=== PATIENT | male | born 1965 | race Caucasian/White ===

== ENCOUNTER 2025-02-19 11:44 | Outpatient (AMB) | payer MEDICARE, SELFPAY ==
--- OUTSIDE RECORDS SUMMARY | 2025-02-15 23:59 | XMS_ITS | Continuity of Care Document ---
Author Organization [facility] Primary [facility] e Richards Address [address] [place] [address]- Care Team Providers Care Crossing Supervisor Name Role Phone Tayo Cochran MD Primary Care Physician Encounter [facility] Date(s): 01/16/25 - 02/15/25 [facility] [place] [address] [place], [place] [address] Encounter Type: Triage Allergies, Adverse Reactions, Alerts Substance Criticality Severity Reaction Reaction Severity Status Pamelor Active Immunizations Given and Recorded Vaccine Date Status Refusal Reason zoster vaccine, inactivated 12/22/24 Recorded zoster vaccine, inactivated 07/11/24 Recorded SARS-CoV-2 (COVID-19) mRNA BNT-162b2 vac 11/01/20 Recorded SARS-CoV-2 (COVID-19) mRNA BNT-162b2 vac 10/11/20 Recorded Medications amLODIPine 5 mg oral tablet 1 tablet = 5 mg, By Mouth, Daily, # 90 tablet, 1 Refills, Maintenance, 11/24/24 9:09:00 AM EDT, Tablet, [facility]/pharmacy #[id number], Partial fill upon patient request if the prescription is for a schedule II opioid drug., 108.8, kg, 05/15/24 11:03:00 EST, Dry Weight Start Date: 11/24/24 Stop Date: 05/23/25 Status: Ordered Medication Dispense Status: Completed Quantity: 90.0 Unit: tablet Total Allowed Fills: 2 Fills Dispensed: 0 Doc-Q-Lace = 100 mg, By Mouth, 2 times a day, PRN, 0 Refills, Maintenance, 06/23/23 3:42:00 PM EST, Partial fill upon patient request if the prescription is for a schedule II opioid drug. Start Date: 06/23/23 Status: Ordered Medication Dispense Status: Completed Total Allowed Fills: 1 Fills Dispensed: 0 gabapentin 600 mg oral tablet 1 tablet, By Mouth, 4 times a day, MassPat checked, # 120 tablet, 3 Refills, Maintenance, 11/27/24 6:19:00 PM EDT, [facility] #[id number], 180, cm, 11/16/24 8:29:00 EDT, Height, 104.5, kg, 10/21/24 9:40:00 EDT, Dry Weight Start Date: 11/27/24 Status: Ordered Medication Dispense Status: Completed Quantity: 120.0 Unit: tablet Total Allowed Fills: 4 Fills Dispensed: 0 latanoprost 0.005% ophthalmic solution 1 drops, Eyes, Both, Daily at bedtime, # 3 mL, 0 Refills, Maintenance, 07/13/23 9:06:00 AM EST, Ophth Solution, Partial fill upon patient request if the prescription is for a schedule II opioid drug. Start Date: 07/13/23 Status: Ordered Medication Dispense Status: Completed Quantity: 3.0 Unit: mL Total Allowed Fills: 1 Fills Dispensed: 0 MiraLax oral powder for reconstitution = 17 Gm, By Mouth, Daily, with 8oz of water, 0 Refills, Maintenance, 06/23/23 3:46:00 PM EST, Partial fill upon patient request if the prescription is for a schedule II opioid drug. Start Date: 06/23/23 Status: Ordered Medication Dispense Status: Completed Total Allowed Fills: 1 Fills Dispensed: 0 morphine 100 mg/8 to 12 hr oral tablet, extended release 1 tablet = 100 mg, By Mouth, Every 8 hours, MassPat checked, # 84 tablet, 0 Refills, Maintenance, 02/15/25 2:56:00 PM EDT, ER Tablet, [facility] #[id number], Partial fill upon patient request if the prescription is for a schedule II opioid drug. Please fill on or after 06/03/24, 180, cm, 01/30/25 8:54:00 EDT, Height, 104.5, kg, 10/21/24 9:40:00 EDT, Dry Weight Start Date: 02/15/25 Stop Date: 03/15/25 Status: Ordered Medication Dispense Status: Completed Quantity: 84.0 Unit: tablet Total Allowed Fills: 1 Fills Dispensed: 0 Narcan 4 mg/0.1 mL nasal spray 1 sprays = 4 mg, Nares, Both, Once, use one spray in one nostril. if an additional dose is needed, alternate nostril may repeat every 2 to 3 minutes until patient responds, # 2 each, 1 Refills, Soft Stop, 12/21/24 3:18:00 PM EDT, [facility] #[id number], Partial fill upon patient request if the p rescription is for a schedule II opioid drug., 180, cm, 12/21/24 14:52:00 EDT, Height, 104.5, kg, 10/21/24 9:40:00 EDT, Dry Weight Start Date: 12/21/24 Status: Ordered Medication Dispense Status: Completed Quantity: 2.0 Unit: each Total Allowed Fills: 2 Fills Dispensed: 0 Prevacid 15 mg oral enteric coated capsule 2 capsule = 30 mg, By Mouth, 2 times a day, # 360 capsule, 1 Refills, Maintenance, 01/30/25 8:48:00 AM EDT, [facility] #[id number], Partial fill upon patient request if the prescription is for a schedule II opioid drug., 180, cm, 12/21/24 14:52:00 EDT, Height, 104.5, kg, 10/21/24 9:40:00 EDT, Dry Weight Start Date: 01/30/25 Stop Date: 07/29/25 Status: Ordered Medication Dispense Status: Completed Quantity: 360.0 Unit: capsule Total Allowed Fills: 2 Fills Dispensed: 0 Problem List Condition Confirmation Course Effective Dates Status H ealth Status Informant Abnormal gait Confirmed Active Acute pharyngitis Confirmed Active Adenomatous polyp of colon Confirmed Active Allergic rhinitis Confirmed Active Chest pain Confirmed Active Chronic pain syndrome Confirmed Active Constipation Confirmed Active Chronic, continuous use of opioids Confirmed Active Dyslipidemia Confirmed Active Essential hypertension Confirmed Active Eye strain Confirmed Active Gastric ulcer Confirmed Active Gastro-esophageal reflux disease with esophagitis Confirmed Active Gastroduodenitis Confirmed Active GERD (gastroesophageal reflux disease) Confirmed Active IFG (impaired fasting glucose) Confirmed Active Low back pain Confirmed Active Low tension glaucoma Confirmed Active Obese class I Confirmed Active Pain in elbow Confirmed Active Panic attack Confirmed Active Post-laminectomy syndrome Confirmed Active Recurrent major depression in partial remission Confirmed Active Shoulder pain Confirmed Active Social History Social History Type Response Smoking Status Former smoker, quit more than 30 days ago; Other: Quit ; entered on: 07/13/23 Sexual Orientation Self described orien tation: ; Straight or heterosexual Gender Identity Gender identity: Sex Sex Representation Male (finding) Patient Care team information Care Team Personnel Name: Tayo Cochran MD Position: [facility] Physician - Primary Care Member Role: PCP Address: [address] [place] [id number] Telecom: Care Team Related Persons Name: GAVINO CHANDLER Name: ALICE IRAHETA Insurance Providers Guarantor name: CADENCE Health Plan Information #: 1 Payer: [facility] PPO Payer Identifier: NA Member Number: [id number] Group Number: [id number] Subscriber Identifier: NA Relationship to Subscriber: self Coverage Type: Medicare PPO Coverage Verification Date: NA Telecom: NA Address:
--- OUTSIDE RECORDS SUMMARY | 2025-02-16 23:59 | XMS_ITS | Continuity of Care Document ---
Author Organization [facility] Primary [facility] e [facility] Address [address] [place] [address]- Care Team Providers Care Used Car Renovator Name Role Phone Tayo Cochran MD Primary Care Physician Encounter [facility] Date(s): 01/17/25 - 02/16/25 [facility] [address] [place], [place] [address] Encounter Type: Triage Allergies, Adverse Reactions, [...] Refills, Maintenance, 11/24/24 9:09:00 AM EDT, Tablet, [facility]/pharmacy #[id number], Partial fill upon patient request if [...] 3 Refills, Maintenance, 11/27/24 6:19:00 PM EDT, [facility] #[id number], 180, cm, 11/16/24 8:29:00 EDT, Height, 104.5, [...] Maintenance, 02/15/25 2:56:00 PM EDT, ER Tablet, [facility] #[id number], Partial fill upon patient request if the [...] Refills, Soft Stop, 12/21/24 3:18:00 PM EDT, [facility] #[id number], Partial fill upon patient request if the [...] 1 Refills, Maintenance, 01/30/25 8:48:00 AM EDT, [facility] #[id number], Partial fill upon patient request if the [...] Team Personnel Name: Tayo Cochran MD Position: [facility] Physician - Primary Care Member Role: PCP Address: [address] [place] [id number] Telecom: Care Team Related Persons Name: GAVINO CHANDLER Name: ALICE IRAHETA Insurance Providers Guarantor name: CADENCE Health Plan Information #: 1 Payer: [facility] PPO Payer Identifier: NA Member Number: [id number] Group Number: [id number] Subscriber Identifier: NA Relationship to Subscriber: self Coverage Type: Medicare PPO Coverage Verification Date: NA Telecom: NA Address:
--- NOTE | 2025-02-19 11:48 | MHC.OFFVIS ---
Vital Signs 02/19/25 11:50 Height 5 ft 11 in Weight 264 lb BMI 36.8 BP 163/96 H Blood Pressure Location Lt brachial Position Sitting Respiration 16 Pulse 103 H Pulse Source Pulse Oximeter Pulse Oximetry (%) 97 Oxygen Delivery Method Room Air Intake Visit Reasons: Back pain Senior Sous Chef Required: No Allergies No Known Allergies Allergy (Verified 02/19/25 11:51) HPI HPI Back pain: Details: History of Present Illness The patient is a 59-year-old male presenting with low back pain. He underwent a laminectomy and fusion from L4 through S1 in 1998 due to a spinal cord infection following a discogram and discectomy. The patient has experienced persistent back pain since the surgery, which has significantly impacted his ability to work and perform daily activities. The patient reports bilateral facet joint hypertrophy and ligamentum flavum thickening at L2-3 and L3-4, contributing to his pain. He has also experienced numbness in his lower extremities, particularly in his legs and toes, which has not improved over time. The patient has a history of multiple surgeries performed by Dr. Miles and Dr. Waters at [facility]. He has been under the care of Dr. Cochran for several years and previously attended pain management at [facility], where he received acupuncture and medication management. The patient has been on various pain medications, including morphine and meloxicam, but reports limited relief. Pain Description - Onset: Chronic pain since 1998 post-surgery - Quality: Persistent and severe, impacting daily activities - Location: Low back with numbness radiating to lower extremities - Exacerbating factors: Physical activity, bending - Relieving factors: None reported Physical Exam - Appears afebrile. - Alert and oriented. - Mood and affect appropriate. - Follows and participates in conversation appropriately. - Respiratory effort is unlabored. - Able to transition from sit to stand unassisted with the help of a cane. Pain Management - Affect: Pain significantly impacts daily activities and mood - Analgesia: Currently on morphine and meloxicam with limited relief - Adverse Effects: No specific adverse effects reported - Activities of Daily Living: Unable to work or perform certain activities due to pain - Aberrant Drug Related Behaviors: None reported [facility] Medical History (Updated 02/02/25 @ 08:38 by Sydnee Spain LPN) Shoulder pain Recurrent major depression in partial remission Post laminectomy syndrome Panic attack Pain in elbow Obesity, class 1 Low tension glaucoma Low back pain IFG (impaired fasting glucose) GERD (gastroesophageal reflux disease) Gastric ulcer Essential hypertension Dyslipidemia Constipation Chronic, continuous use of opioids Chronic pain syndrome Allergic rhinitis Abnormal gait Physical Exam Vital Signs: Last Vital Signs Pulse 103 H 02/19/25 11:50 Resp 16 02/19/25 11:50 BP 163/96 H 02/19/25 11:50 Pulse Ox 97 02/19/25 11:50 Oxygen Delivery Method Room Air 02/19/25 11:50 BMI result Body Mass Index 36.8 Assessment & Plan Assessment & Plan (1) Chronic, continuous use of opioids: Code(s): F11.90 - Opioid use, unspecified, uncomplicated Category: Medical (2) Post laminectomy syndrome: Code(s): M96.1 - Postlaminectomy syndrome, not elsewhere classified Category: Medical Plan Plan Patient was informed and verbally consented to the use of an ambient scribe for clinic note documentation during this visit. 1. Post-Laminectomy Syndrome - Discussed potential options including spinal cord stimulator and intrathecal drug delivery system. - Explained the risks and benefits of each option, including potential for infection and need for psychological clearance. - Provided brochures for further information and advised the patient to consider options and return with questions. Discussion Notes I discussed with the patient the potential options for managing his post-laminectomy syndrome, including spinal cord stimulation and intrathecal drug delivery systems. I explained the risks and benefits of each option, highlighting the potential for infection and the need for psychological clearance before proceeding. Brochures were provided for further reading, and the patient was advised to consider these options and return with any questions. Patient Instructions - Review the brochures provided on spinal cord stimulation and intrathecal drug delivery systems. - Consider the discussed options and prepare any questions for the next visit. - Follow up with the clinic once a decision is made or if further clarification is needed. Coding Level of Care Code New Pt Level 4 (54853) Diagnoses Chronic, continuous use of opioids F11.90 Post laminectomy syndrome M96.1
[2025-02-19 11:50] VITALS: BP 163/96; PULSE 103; RESP 16; O2SAT 97; BMI 36.8
--- OUTSIDE RECORDS SUMMARY | 2025-02-19 14:23 | XMS_ITS | Patient Health Record ---
Author Organization [facility] Address [address] [facility] [place] [id number] Care Team Providers Care Trade Recruiter Name Role Phone Tayo Cochran Primary Care Provider Unavailabl e Black, Jennifer Unavailable [phone] Reason For Referral No Information Medications Medication SIG (Take, Route, Fr equency, Duration) Notes Start Date End Date Status Voltaren 1 % as directed Transder mal daily; Duration: as needed 03/16/2018 Active Morphine Active Gabapentin Active amLODIPine Besylate Active Lansoprazole Active Social History Tobacco Use: Social History Observation Description Date Details (start date - stop date) Former Smoker NA - NA Tobacco Use/Smoking Question Answer Notes Are you a: former smoker Additional Findings: Tobacco Non-User Current no n-smoker Alcohol Screen Question Answer Notes Did you have a drink containing alcohol in the p ast year? Yes Points 0 Interpretation Negative Tobacco use other than smoking: Question Answer Notes Are you an other tobacco user? No Problems Problem Type SNOMED Code ICD Code Onset Dates Problem Status W/U Status Risk Notes Problem Localized, primary osteoarthritis of the ankle and/or foot (121053386) Primary osteoarthrit is, left ankle and foot (M19.072) Active confirmed Problem Acquired hammer toe of right foot (1528736305682876) Hammer toe of right foot (M20.41) Active confirmed Plan Of Treatment No Information Insurance Providers Payer Name Payer Address Payer Phone Subscriber Number Group Number Insured Name Patient Relationship to Insured Coverage Start Date Coverage End Date [employer] Preferred [address] [place] [phone] [id number] John Humphries Self - patient is the insured Medical (General) History Medical History History ICD Code Back,Hip,and Knee pain Glaucoma Joint implants/screws Neuropathy Gastroesophageal reflux disease (GERD) Sciatica Surgical History Surgery Date(Month/Year) laminectomy 1995 discectomy 1996 Spinal Cord Infection 1997 Back surgery 2 level fusion 1998
== END 2025-02-19 12:30 | disposition home or self-care (01) ==
LOC: HO.PMC 11:45
PROVIDERS: PCP Internal Medicine; Visit Provider Internal Medicine
DX: M96.1 Postlaminectomy syndrome, not elsewhere classified (principal); Z79.891 Long term (current) use of opiate analgesic
CPT/HCPCS: 99204

== ENCOUNTER → 2025-02-19 11:44 | Outpatient (BNVA) | payer MEDICARE, SELFPAY | PROVIDERS: PCP Internal Medicine; Visit Provider Internal Medicine | DX: M96.1 Postlaminectomy syndrome, not elsewhere classified (principal); R20.0 Anesthesia of skin; F11.90 Opioid use, unspecified, uncomplicated; G89.29 Other chronic pain | CPT/HCPCS: 99202 ==